=== PATIENT | male | born 1995 | race Two or more races ===

== ENCOUNTER 2022-02-08 00:30 | Emergency (ER) | payer OTHER ==
[2022-02-08 01:18] VITALS: BP 125/72; TEMP 98.4; BMI 36.6
[2022-02-08] MEDS ORDERED: ACETAMINOPHEN 500 MG TABLET (FP) PO ONE (01:54)
[2022-02-08] MEDS ORDERED: KETOROLAC TROMETHAMINE 15 MG/ML VIAL IVPUSH ONE (02:14)
[2022-02-08] MEDS ORDERED: LIDOCAINE 5% TOPICAL PATCH TP ONE (02:14)
[2022-02-08] MEDS ORDERED: LIDOCAINE 5% TOPICAL PATCH ONE (02:47)
[2022-02-08] MEDS ORDERED: ACETAMINOPHEN 325 MG TABLET (FP) ONE (02:47)
[2022-02-08] MEDS ORDERED: KETOROLAC TROMETHAMINE 15 MG/ML VIAL ONE (02:48)
[2022-02-08] MEDS ORDERED: DEXAMETHASONE SOD PHOSPHATE 10 MG/1 ML VIAL IM ONE (03:08)
[2022-02-08] MEDS ORDERED: DEXAMETHASONE SOD PHOSPHATE 10 MG/1 ML VIAL ONE (04:06)
[2022-02-08 06:16] VITALS: PULSE 96
[2022-02-08] MEDS ORDERED: LIDOCAINE PATCH REMOVAL MC SCH (22:00)
[2022-02-09 19:12] LABS: SARS-CoV-2 NAA Not Detected (Not Detected)
== END 2022-02-08 06:16 | disposition home or self-care (01) ==
LOC: JER 00:30
PROC: 3E023GC Introduction of Other Therapeutic Substance into Muscle, Percutaneous Approach (ICD-10-PCS; principal; 2022-02-08)
PROC: 3E033GC Introduction of Other Therapeutic Substance into Peripheral Vein, Percutaneous Approach (ICD-10-PCS; principal; 2022-02-08)
DX: M54.41 Lumbago with sciatica, right side (principal); R07.0 Pain in throat
CPT/HCPCS: 72131-TC; 87651; 87804; 87807; 93005; 93010; 99285-25; C9803-CS; J1100; U0003; U0005

== ENCOUNTER 2023-01-26 14:25 | Emergency (ER) | payer OTHER ==
[2023-01-26 14:30] VITALS: BP 131/70; PULSE 82; RESP 18; TEMP 97.6; BMI 32.1
[2023-01-26] MEDS ORDERED: IBUPROFEN 600 MG TABLET (FP) PO ONE ×2 (16:01→16:02)
== END 2023-01-26 16:25 | disposition home or self-care (01) ==
LOC: JERFT 14:25
DX: S93.401A Sprain of unspecified ligament of right ankle, initial encounter (principal); X58.XXXA Exposure to other specified factors, initial encounter; Y93.01 Activity, walking, marching and hiking
CPT/HCPCS: 73610-TC-RT-FY; 99283-25

== ENCOUNTER 2023-03-28 01:38 | Emergency (ER) | payer OTHER ==
[2023-03-28 01:54] VITALS: BP 109/64; PULSE 73; RESP 18; TEMP 97.9; BMI 32.3
[2023-03-28] MEDS ORDERED: LIDOCAINE 5% TOPICAL PATCH TP ONE (02:44)
[2023-03-28] MEDS ORDERED: KETOROLAC TROMETHAMINE 30 MG/1 ML VIAL IM ONE (02:44)
[2023-03-28] MEDS ORDERED: KETOROLAC TROMETHAMINE 30 MG/1 ML VIAL ONE (02:56)
[2023-03-28] MEDS ORDERED: LIDOCAINE 5% TOPICAL PATCH ONE (02:56)
[2023-03-28] MEDS ORDERED: LIDOCAINE PATCH REMOVAL MC SCH (22:00)
== END 2023-03-28 03:23 | disposition home or self-care (01) ==
LOC: JER 01:38
PROC: 3E0233Z Introduction of Anti-inflammatory into Muscle, Percutaneous Approach (ICD-10-PCS; principal; 2023-03-28)
DX: M54.50 Low back pain, unspecified (principal); S39.012A Strain of muscle, fascia and tendon of lower back, initial encounter; X58.XXXA Exposure to other specified factors, initial encounter
CPT/HCPCS: 99284-25

== ENCOUNTER 2023-12-28 03:43 | Emergency (ER) | payer OTHER ==
[2023-12-28 03:50] VITALS: BP 140/88; PULSE 83; RESP 18; BMI 28.8
[2023-12-28] MEDS ORDERED: CLINDAMYCIN HCL 150 MG CAPSULE (FP) ONE (04:42)
[2023-12-28] MEDS ORDERED: ACETAMINOPHEN 325 MG TABLET (FP) ONE (04:43)
[2023-12-28] MEDS ORDERED: DIPHTH,PERTUSS(ACELL),TET 0.5 ML DISP.SYRIN IM ONE (04:44)
[2023-12-28] MEDS ORDERED: BACITRACIN ZINC 15 GM TUBE TOPICAL OINTMENT ONE (04:49)
[2023-12-28] MEDS: DIPHTH,PERTUSS(ACELL),TET 0.5 ML DISP.SYRIN IM ONE (04:55)
[2023-12-28] MEDS: CLINDAMYCIN HCL 300 MG CAPSULE PO ONE (04:56)
[2023-12-28] MEDS: ACETAMINOPHEN 500 MG TABLET (FP) PO ONE (04:56)
[2023-12-28] MEDS: BACITRACIN ZINC 15 GM TUBE TOPICAL OINTMENT TP ONE (04:56)
== END 2023-12-28 05:33 | disposition home or self-care (01) ==
LOC: JER 03:43
PROC: 3E0234Z Introduction of Serum, Toxoid and Vaccine into Muscle, Percutaneous Approach (ICD-10-PCS; principal; 2023-12-28)
DX: L08.9 Local infection of the skin and subcutaneous tissue, unspecified (principal)
CPT/HCPCS: 90471; 90715; 99283-25